=== PATIENT | male | born 1940 | race Caucasian/White ===

== ENCOUNTER 2019-03-15 17:08 | Emergency (ER) | payer OTHER, MEDICARE ==
[~2019-03-15 17:08] MED LIST: AMIO200T49 PO; ATOR40TA24 PO; CIPR-344 PO; DICY10CA11 PO; FINA5TAB67 PO; FLUO30CR TP; HYDR-653 PO; MELO-205 PO; MELO7.5O3 PO; TAMS0.4C25 PO; ZOLP-350 PO
[2019-03-15 17:53] LABS: PLATELET COUNT, AUTOMATED 324 K/uL (150-450)
--- NOTE | 2019-03-15 17:55 | EKG ---
FACILITY: [facility] - [place] PATIENT NAME: TALA ADLER : [id number] MR: [id number] V: [id number] EXAM DATE: ORDERING PHYSICIAN: MARY WAGGONER TECHNOLOGIST: Test Reason : Blood Pressure : / mmHG Vent. Rate : 077 BPM Atrial Rate : 077 BPM P-R Int : 252 ms QRS Dur : 120 ms QT Int : 400 ms P-R-T Axes : 088 -66 023 degrees QTc Int : 452 ms Sinus rhythm with 1st degree AV block Left axis deviation Inferior infarct (cited on or before 12-MAR-2014) Anterior infarct (cited on or before 12-MAR-2014) Abnormal ECG When compared with ECG of 24-JAN-2015 21:57, premature ventricular complexes are no longer present premature atrial complexes are no longer present Confirmed by NAI CURRY ([id number]) on 03/16/2019 6:25:27 AM Referred By: Confirmed By:NAI CURRY
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
[2019-03-15] MEDS ORDERED: IOPAMIDOL 76% 100 ML INFUS BTL 100 ML ONE (18:08)
[2019-03-15] MEDS ORDERED: MORPHINE 4 MG/ML SDV IVP ONE (19:20)
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
[2019-03-15 19:30] VITALS: BP 154/87
[2019-03-15] MEDS ORDERED: NS(*) 0.9% 1000 ML BAG 1,000 ML IV ONE (19:30)
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
[2019-03-15] MEDS ORDERED: HYDR-385 PO (19:57)
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
[2019-03-15] MEDS ORDERED: ACET/HYDROC 5/325MG TH ER ONLY 2 TAB/BOTTLE PO ONE (20:10)
== END 2019-03-15 20:07 | disposition home or self-care (01) ==
LOC: ER 17:26
DX: S42.022A Displaced fracture of shaft of left clavicle, initial encounter for closed fracture (principal); S22.42XA Multiple fractures of ribs, left side, initial encounter for closed fracture; N28.9 Disorder of kidney and ureter, unspecified; V68.5XXA Driver of heavy transport vehicle injured in noncollision transport accident in traffic accident, initial encounter
CPT/HCPCS: 70450; 71045; 71260; 72125; 73030; 74177; 80320; 81001; 83690; 84484; 85025; 93005; 96374; 99284; A4565; J2270; J7030; Q9967; 82040; 82247; 82310; 82374; 82435; 82565; 82947; 84075; 84132; 84155; 84295; 84450; 84460; 84520

== ENCOUNTER 2019-03-19 19:21 | Emergency (ER) | payer OTHER, MEDICARE ==
[~2019-03-19 19:21] MED LIST changes: +HYDR-385 PO
[2019-03-19 19:27] VITALS: BP 134/76
[2019-03-19] MEDS ORDERED: NS(*) 0.9% 50 ML BAG 50 ML ONE (20:11)
[2019-03-19] MEDS ORDERED: IOPAMIDOL 76% 100 ML INFUS BTL 100 ML ONE (20:11)
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
== END 2019-03-19 21:00 | disposition home or self-care (01) ==
LOC: ER 19:34
DX: N28.9 Disorder of kidney and ureter, unspecified (principal); M25.512 Pain in left shoulder
CPT/HCPCS: 36415; 82310; 82374; 82435; 82565; 82947; 84132; 84295; 84520; 99282; J7050; Q9967

== ENCOUNTER 2019-04-03 05:59 | Emergency (ER) | payer OTHER, MEDICARE ==
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
[2019-04-03 06:49] LABS: PLATELET COUNT, AUTOMATED 485 K/uL (150-450)
[2019-04-03 07:00] VITALS: BP 90/62
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
[2019-04-03] MEDS ORDERED: LOR5/325 PO (07:18)
[2019-04-03] MEDS ORDERED: LORA-1455 PO (07:18)
--- NOTE | 2019-04-03 08:30 | EKG ---
FACILITY: [facility] [place] PATIENT NAME: TALA ADLER : [id number] MR: [id number] V: [id number] EXAM DATE: ORDERING PHYSICIAN: PHYLLIS ROSENTHAL TECHNOLOGIST: JOEL Hicks Reason : FATAIGUE Blood Pressure : / mmHG Vent. 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
[2019-04-06] MEDS ORDERED: [UNRECOGNIZED DRUG - CODE] (15:31)
[2019-04-06] MEDS ORDERED: TRAZ50TA52 (15:31)
[2019-04-06] MEDS ORDERED: TAMSULOSIN (15:31)
[2019-04-06] MEDS ORDERED: ATOR40TA69 (15:31)
[2019-04-06] MEDS ORDERED: MIRT-22 (15:31)
== END 2019-04-03 07:31 | disposition home or self-care (01) ==
LOC: ER 06:19
DX: S42.032S Displaced fracture of lateral end of left clavicle, sequela (principal); S22.43XS Multiple fractures of ribs, bilateral, sequela; G47.01 Insomnia due to medical condition
CPT/HCPCS: 71045; 81001; 82040; 82247; 82310; 82374; 82435; 82565; 82947; 83735; 84075; 84132; 84155; 84295; 84450; 84460; 84484; 84520; 85025; 93005; 99283